=== PATIENT | male | born 1975 | race Caucasian/White ===

== ENCOUNTER 2019-09-21 10:43 | Inpatient (IN) | payer MEDICAID ==
[~2019-09-21] VITALS: Ht 175.3 cm; Wt 77.6 kg
[2019-09-21] MEDS ORDERED: MORPHINE SULFATE 4 MG/ML CPJ (NOT FOR IM USE) IV STA (10:57)
[2019-09-21] MEDS ORDERED: SODIUM CHLORIDE 0.9% 1,000 ML IV ONE (10:57)
[2019-09-21] MEDS ORDERED: METOCLOPRAMIDE HCL 10MG/2ML VIAL IV ONE (11:00)
[2019-09-21 11:41] LABS: HEMATOCRIT. 32.4 % (42.0-52.0); HEMOGLOBIN. 11.2 g/dL (14.0-18.0); MEAN CORPUSCULAR HEMOGLOBIN 29.8 pg (28.0-32.0); MEAN CORPUSCULAR VOLUME 85.8 fL (80.0-94.0); MEAN PLATELET VOLUME 8.4 fl (7.4-10.4); PLATELET 371 x1000/uL (130-400); RED BLOOD CELL COUNT 3.78 mill/uL (4.7-6.1); RED CELL DISTRIBUTION WIDTH 13.8 % (11.6-14.6)
[2019-09-21 11:46] LABS: CHLORIDE 109 mEq/L (98-107); PROTHROMBIN TIME 9.9 sec (9.6-11.0)
[2019-09-21 12:22] LABS: PLATELET ESTIMATE NORMAL
[2019-09-21] MEDS ORDERED: ONDANSETRON HCL 4MG/2ML INJ IV ONE (12:30)
[2019-09-21] MEDS ORDERED: MORPHINE SULFATE 4 MG/ML CPJ (NOT FOR IM USE) IV ONE ×2 (12:30→13:45)
[2019-09-21 12:50] LABS: CLARITY URINE CLEAR (CLEAR); COLOR URINE YELLOW (YELLOW); KETONES URINE NEGATIVE (NEGATIVE); LEUKOCYTE ESTERASE URINE NEGATIVE (NEGATIVE); NITRITE URINE NEGATIVE (NEGATIVE); OCCULT BLOOD URINE 1+ (NEGATIVE); PH URINE 7.5 (4.5-8.0); PROTEIN URINE 4+ (NEGATIVE); SPECIFIC GRAVITY URINE 1.012 (1.005-1.030); UROBILINOGEN URINE 0.2 E.U./dL (0.2-1.0)
[2019-09-21] MEDS ORDERED: HYDRALAZINE 20MG/ML VIAL IV ONE (13:15)
[2019-09-21] MEDS ORDERED: LORAZEPAM 2MG/ML CPJ IV PRN (16:45)
[2019-09-21] MEDS: SODIUM CHLORIDE 0.9% 1,000 ML IV SCH (16:45)
[2019-09-21] MEDS: HYDROMORPHONE HCL/PF 2MG/ML CPJ IV PRN (17:14)
[2019-09-21 18:00] VITALS: BP 156/89
[2019-09-21] MEDS ORDERED: DEXTROSE 50% WATER 50ML SYRINGE IV PRN (18:00)
[2019-09-21] MEDS: PANTOPRAZOLE SODIUM 40 MG/VIAL IV SCH (18:48)
[2019-09-21 20:00] VITALS: BP 182/96
[2019-09-21] MEDS ORDERED: LISI-604 PO (20:26)
[2019-09-21] MEDS ORDERED: GABA800T97 PO (20:26)
[2019-09-21] MEDS ORDERED: TAMS-11 MT (20:26)
[2019-09-21] MEDS ORDERED: INSLIS SUBCUT (20:26)
[2019-09-21] MEDS ORDERED: INSU100I28 SQ (20:26)
[2019-09-21] MEDS: INSULIN LISPRO 100 UNITS/ML SUBCUT SCH (21:00)
[2019-09-21] MEDS: BLOOD SUGAR DIAGNOSTIC STRIP TEST SCH (21:00)
[2019-09-22] VITALS: BP 190/100
[2019-09-22] MEDS: HYDROMORPHONE HCL/PF 2MG/ML CPJ IV PRN ×4 (00:42→18:46)
[2019-09-22] MEDS: ONDANSETRON HCL 4MG/2ML INJ IV PRN ×4 (01:37→21:35)
[2019-09-22 04:00] VITALS: BP 190/110
[2019-09-22] MEDS: PANTOPRAZOLE SODIUM 40 MG/VIAL IV SCH ×2 (05:09→17:46)
[2019-09-22] MEDS: HYDRALAZINE 10 MG in DEXTROSE 5% WATER 50 ML IV SCH ×2 (05:09→12:41)
[2019-09-22] MEDS ORDERED: HYDRALAZINE 20MG/ML VIAL IV SCH (06:00)
[2019-09-22] MEDS: SODIUM CHLORIDE 0.9% 1,000 ML IV SCH ×2 (06:05→20:35)
[2019-09-22] MEDS: BLOOD SUGAR DIAGNOSTIC STRIP TEST SCH ×4 (06:31→21:30)
[2019-09-22 08:00] VITALS: BP 189/96
[2019-09-22] MEDS: LORAZEPAM 2MG/ML CPJ IV PRN ×3 (08:51→21:35)
[2019-09-22] MEDS: INSULIN LISPRO 100 UNITS/ML SUBCUT SCH ×4 (08:58→21:00)
[2019-09-22 12:00] VITALS: BP 190/109
[2019-09-22 16:00] VITALS: BP 167/106
[2019-09-22] MEDS ORDERED: HYDRALAZINE 20 MG in DEXTROSE 5% WATER 50 ML IV SCH (18:00)
[2019-09-22 20:00] VITALS: BP 159/93
[2019-09-22] MEDS: HYDRALAZINE 20 MG in DEXTROSE 5% WATER 50 ML IV SCH (20:36)
[2019-09-23] VITALS: BP 144/78
[2019-09-23] MEDS: METOCLOPRAMIDE HCL 10MG/2ML VIAL IV SCH ×4 (00:21→19:17)
[2019-09-23] MEDS: HYDROMORPHONE HCL/PF 2MG/ML CPJ IV PRN ×3 (01:38→20:43)
[2019-09-23] MEDS: HYDRALAZINE 20 MG in DEXTROSE 5% WATER 50 ML IV SCH ×2 (01:38→11:01)
[2019-09-23 04:00] VITALS: BP 159/87
[2019-09-23] MEDS: PANTOPRAZOLE SODIUM 40 MG/VIAL IV SCH ×2 (05:55→19:17)
[2019-09-23] MEDS: BLOOD SUGAR DIAGNOSTIC STRIP TEST SCH ×4 (06:39→21:00)
[2019-09-23 08:00] VITALS: BP 186/104
[2019-09-23] MEDS: ONDANSETRON HCL 4MG/2ML INJ IV PRN ×2 (08:12→20:43)
[2019-09-23] MEDS: INSULIN LISPRO 100 UNITS/ML SUBCUT SCH ×5 (08:21→21:00)
[2019-09-23 09:51] LABS: CANNABINOID URINE SCREEN PRESUMTIVE POSITIVE (NEGATIVE)
[2019-09-23 09:53] LABS: *AMPHETAMINES SCREEN URINE NEGATIVE (NEGATIVE); *COCAINE SCREEN URINE NEGATIVE (NEGATIVE); METHADONE URINE SCREEN NEGATIVE (NEGATIVE); OPIATES URINE SCREEN PRESUMTIVE POSITIVE (NEGATIVE)
[2019-09-23 09:54] LABS: PHENCYCLIDINE URINE SCREEN NEGATIVE (NEGATIVE)
[2019-09-23 09:56] LABS: *BARBITURATES SCREEN URINE NEGATIVE (NEGATIVE)
[2019-09-23 09:57] LABS: *BENZODIAZEPINES SCREEN URINE NEGATIVE (NEGATIVE)
[2019-09-23] MEDS: LORAZEPAM 2MG/ML CPJ IV PRN (11:51)
[2019-09-23 12:11] LABS: BASOPHILS % 0.5 % (0.0-2.0); EOSINOPHILS % 0.1 % (0.0-5.0); HEMATOCRIT. 32.6 % (42.0-52.0); HEMOGLOBIN. 10.9 g/dL (14.0-18.0); LYMPHOCYTES % 8.6 % (20.0-50.0); MEAN CORPUSCULAR HEMOGLOBIN 29.5 pg (28.0-32.0); MEAN CORPUSCULAR VOLUME 87.8 fL (80.0-94.0); MEAN PLATELET VOLUME 8.3 fl (7.4-10.4); MONOCYTES % 6.2 % (2.0-8.0); NEUTROPHILS % 84.6 % (40.0-76.0); PLATELET 370 x1000/uL (130-400); RED BLOOD CELL COUNT 3.71 mill/uL (4.7-6.1); RED CELL DISTRIBUTION WIDTH 13.7 % (11.6-14.6)
[2019-09-23 12:20] VITALS: BP 154/82
[2019-09-23 12:28] LABS: CHLORIDE 107 mEq/L (98-107)
[2019-09-23 12:29] LABS: GAMMA GLUTAMYL TRANSPEPTIDASE 11 IU/L (11-50)
[2019-09-23 13:37] LABS: HEPATITIS B SURFACE ANTIGEN NEGATIVE
[2019-09-23] MEDS ORDERED: CLONIDINE 0.2MG TABLET PO PRN (13:45)
[2019-09-23] MEDS ORDERED: HYDRALAZINE 20 MG in DEXTROSE 5% WATER 50 ML IV PRN (13:45)
[2019-09-23 14:07] LABS: HEPATITIS A AB IGM NEGATIVE (NEGATIVE)
[2019-09-23] MEDS ORDERED: HYDRALAZINE 20MG/ML VIAL IV PRN (14:15)
[2019-09-23] MEDS: METOPROLOL TARTRATE 50MG TABLET PO SCH ×2 (14:15→20:43)
[2019-09-23] MEDS: HYDRALAZINE HCL 100MG TABLET PO SCH ×2 (14:16→21:03)
[2019-09-23] MEDS: SODIUM CHLORIDE 0.9% 1,000 ML IV SCH (15:54)
[2019-09-23 16:00] VITALS: BP 151/91
[2019-09-23] MEDS ORDERED: LORAZEPAM 2MG/ML CPJ IV PRN (16:45)
[2019-09-23 17:33] LABS: T4 FREE 1.52 ng/dL (0.76-1.46)
[2019-09-23 20:00] VITALS: BP 169/90
[2019-09-24] VITALS (7 sets, daily range): BP systolic 125–172; BP diastolic 77–100
[2019-09-24] MEDS: METOCLOPRAMIDE HCL 10MG/2ML VIAL IV SCH ×3 (00:35→12:08)
[2019-09-24] MEDS: LOSARTAN POTASSIUM 25 MG TABLET PO SCH ×2 (00:38→09:27)
[2019-09-24] MEDS: HYDROMORPHONE HCL/PF 2MG/ML CPJ IV PRN ×3 (03:27→16:08)
[2019-09-24] MEDS: ONDANSETRON HCL 4MG/2ML INJ IV PRN ×3 (03:27→16:07)
[2019-09-24] MEDS: PANTOPRAZOLE SODIUM 40 MG/VIAL IV SCH (05:56)
[2019-09-24] MEDS: BLOOD SUGAR DIAGNOSTIC STRIP TEST SCH ×2 (05:57→12:43)
[2019-09-24] MEDS: HYDRALAZINE HCL 100MG TABLET PO SCH ×2 (05:57→13:10)
[2019-09-24] MEDS: INSULIN LISPRO 100 UNITS/ML SUBCUT SCH ×2 (08:10→12:16)
[2019-09-24] MEDS: METOPROLOL TARTRATE 50MG TABLET PO SCH (09:27)
[2019-09-24] MEDS ORDERED: AMLODIPINE 10MG TABLET PO SCH (12:45)
== END 2019-09-24 17:35 | disposition home or self-care (01) | DRG 48 ==
LOC: ER 10:43 → 6EST 13:40 → ENRESERV 15:17 → 7WST 09-23 12:55
PROVIDERS: ADMIT Internal Medicine; ATTEND Internal Medicine
DX: E11.43 Type 2 diabetes mellitus with diabetic autonomic (poly)neuropathy (principal); R65.10 Systemic inflammatory response syndrome (SIRS) of non-infectious origin without acute organ dysfunction; E44.1 Mild protein-calorie malnutrition; K31.84 Gastroparesis; I16.0 Hypertensive urgency; M51.37 Other intervertebral disc degeneration, lumbosacral region; M47.9 Spondylosis, unspecified; D64.9 Anemia, unspecified; I10 Essential (primary) hypertension; K31.9 Disease of stomach and duodenum, unspecified; Z83.3 Family history of diabetes mellitus; Z79.899 Other long term (current) drug therapy; Z79.4 Long term (current) use of insulin; Z68.25 Body mass index [BMI] 25.0-25.9, adult
CPT/HCPCS: 36415; 74176; 80305; 81003; 82962; 82977; 83735; 84100; 84439; 84443; 86705; 86709; 86803; 87340; 93005; 99285; C1893; C9113; J0360; J1170; J1815; J2060; J2270; J2405; J2765; J7030; J7060

== ENCOUNTER 2019-10-15 15:41 | Emergency (ER) | payer MEDICAID ==
[~2019-10-15] VITALS: Ht 175.3 cm; Wt 80.0 kg
[~2019-10-15 15:41] MED LIST: GABA800T97 PO; INSLIS SUBCUT; INSU100I28 SQ; LISI-604 PO; TAMS-11 MT
[2019-10-15] MEDS ORDERED: SODIUM CHLORIDE 0.9% 1,000 ML IV ONE (16:44)
[2019-10-15] MEDS ORDERED: ONDANSETRON HCL 4MG/2ML INJ IV STA (16:44)
[2019-10-15] MEDS ORDERED: MORPHINE SULFATE 4 MG/ML CPJ (NOT FOR IM USE) IV STA (16:44)
[2019-10-15 17:51] LABS: CLARITY URINE CLEAR (CLEAR); COLOR URINE YELLOW (YELLOW); KETONES URINE NEGATIVE (NEGATIVE); LEUKOCYTE ESTERASE URINE NEGATIVE (NEGATIVE); NITRITE URINE NEGATIVE (NEGATIVE); OCCULT BLOOD URINE 1+ (NEGATIVE); PH URINE 7.5 (4.5-8.0); PROTEIN URINE 3+ (NEGATIVE); SPECIFIC GRAVITY URINE 1.007 (1.005-1.030); UROBILINOGEN URINE 0.2 E.U./dL (0.2-1.0)
[2019-10-15 17:53] LABS: CHLORIDE 110 mEq/L (98-107)
[2019-10-15 17:55] LABS: BASOPHILS % 0.7 % (0.0-2.0); EOSINOPHILS % 1.8 % (0.0-5.0); HEMATOCRIT. 29.5 % (42.0-52.0); HEMOGLOBIN. 10.3 g/dL (14.0-18.0); LYMPHOCYTES % 20.3 % (20.0-50.0); MEAN CORPUSCULAR HEMOGLOBIN 29.5 pg (28.0-32.0); MEAN CORPUSCULAR VOLUME 84.9 fL (80.0-94.0); MONOCYTES % 7.7 % (2.0-8.0); NEUTROPHILS % 69.5 % (40.0-76.0); PLATELET 255 x1000/uL (130-400); RED BLOOD CELL COUNT 3.48 mill/uL (4.7-6.1); RED CELL DISTRIBUTION WIDTH 13.4 % (11.6-14.6)
[2019-10-15] MEDS ORDERED: DEXTROSE 50% WATER 50ML SYRINGE IV ONE ×2 (19:22→19:30)
[2019-10-15 21:10] VITALS: BP 169/88
== END 2019-10-15 21:17 | disposition home or self-care (01) ==
LOC: ER 15:41
DX: R10.9 Unspecified abdominal pain (principal); E11.43 Type 2 diabetes mellitus with diabetic autonomic (poly)neuropathy; K31.84 Gastroparesis; Z79.4 Long term (current) use of insulin; E78.00 Pure hypercholesterolemia, unspecified; I10 Essential (primary) hypertension; R16.0 Hepatomegaly, not elsewhere classified
CPT/HCPCS: 36415; 74176; 80053; 81003; 82962; 83690; 85025; 96361; 96374; 96375; 99284; J2270; J2405; J7030

== ENCOUNTER 2019-11-30 17:14 | Emergency (ER) | payer MEDICAID ==
[~2019-11-30] VITALS: Ht 175.3 cm; Wt 80.0 kg
[2019-11-30 17:20] VITALS: BP 154/100
== END 2019-11-30 21:00 | disposition left against medical advice (07) ==
LOC: ER 17:14
DX: R07.9 Chest pain, unspecified (principal); Z53.21 Procedure and treatment not carried out due to patient leaving prior to being seen by health care provider; E11.9 Type 2 diabetes mellitus without complications; I10 Essential (primary) hypertension; Z98.890 Other specified postprocedural states
CPT/HCPCS: 93005; 99283